=== PATIENT | female | born 1975 | race Caucasian/White ===

== ENCOUNTER → 2017-07-22 | Outpatient (CLI) | payer BC | LOC: COL.RAD 07:20 | DX: R10.13 Epigastric pain (principal) ==

== ENCOUNTER → 2020-01-02 | Outpatient (CLI) | payer BC | LOC: MC.RAD 13:24 | DX: Z12.31 Encounter for screening mammogram for malignant neoplasm of breast (principal); N64.9 Disorder of breast, unspecified ==

== ENCOUNTER → 2020-01-05 | Outpatient (CLI) | payer BC | LOC: MC.RAD 08:59 | DX: N60.02 Solitary cyst of left breast (principal) ==

== ENCOUNTER 2021-03-26 07:57 | Day surgery (SDC) | payer BC ==
[~2021-03-26] VITALS: Ht 170.2 cm; Wt 97.7 kg
[2021-03-26] MEDS ORDERED: SYNTHROID0.125 MG/T PO (08:23)
[2021-03-26] MEDS ORDERED: PRINIVIL10 MG PO (08:24)
[2021-03-26] MEDS ORDERED: LIPITOR 80MG80 MG PO (08:24)
[2021-03-26] MEDS ORDERED: GLUCOPHAGE500 MG/TAB PO (08:24)
[2021-03-26] MEDS ORDERED: MULTI VITAMINS1 TAB PO (08:25)
[2021-03-26] MEDS ORDERED: PROBIOTIC-MAJOR PO (08:25)
[2021-03-26 08:45] VITALS: BP 132/85; PULSE 82; TEMP 98.1
[2021-03-26 09:35] VITALS: BP 128/86; PULSE 103; TEMP 99
--- NOTE | 2021-03-26 09:35 | NUR ---
Pt to [place] [address] ambulates to recliner easily. Awake and alert, denies pain and nausea. Pt's daughter at bedside. Pt given juice, crackers, and pudding. Call light in reach.
[2021-03-26 09:50] VITALS: BP 124/82; PULSE 82
--- NOTE | 2021-03-26 09:50 | NUR ---
Pt doing well. VSS. Dr. [place] in and talks with pt. Discharge instructions provided and pt gets dressed, taken out via wheelchair and left in care of her daughter.
== END 2021-03-26 10:10 | disposition home or self-care (01) ==
LOC: SDCO 07:57
DX: Z12.11 Encounter for screening for malignant neoplasm of colon (principal); K63.5 Polyp of colon; K57.30 Diverticulosis of large intestine without perforation or abscess without bleeding; I10 Essential (primary) hypertension; E03.9 Hypothyroidism, unspecified; E11.9 Type 2 diabetes mellitus without complications; E66.01 Morbid (severe) obesity due to excess calories; Z79.4 Long term (current) use of insulin; Z79.899 Other long term (current) drug therapy; Z79.890 Hormone replacement therapy; Z79.84 Long term (current) use of oral hypoglycemic drugs
CPT/HCPCS: J2704; J7030